=== PATIENT | female | born 1990 | race Caucasian/White ===

== ENCOUNTER 2024-04-12 08:54 | Outpatient (CLI) | payer OTHER, SELFPAY ==
--- NOTE | ~2024-04-12 | XR_ITS ---
EXAMINATION: XR foot RT min 3V, XR ankle RT min 3V DATE: 04/12/2024 09:10 INDICATION: Right foot and ankle pain TECHNIQUE: 1. Anteroposterior, mortise, additional oblique and lateral view of the right ankle were obtained. 2. Dorsoplantar, two oblique and lateral views of the right foot were obtained. COMPARISON: None. FINDINGS: Alignment of the right foot and ankle is normal. No fracture. Minimal to mild polyarticular osteoarth ritis at the first metatarsophalangeal and a few tarsometatarsal and interphalangeal joints. No ankle joint effusion. The soft tissues are unremarkable. IMPRESSION: 1. Minimal to mild polyarticular osteoarthritis in the right mid and forefoot. Reviewed, dictated and finalized at location A. ER HELPER IMPRESSION: 1. Minimal to mild polyarticular osteoarthritis in the right mid and forefoot.
== END 2024-04-12 08:55 | disposition home or self-care (01) ==
LOC: ANHBWCIMG 08:55
PROVIDERS: PCP Nurse Practitioner Adult Health; Visit Provider Nurse Practitioner Adult Health
DX: M19.071 Primary osteoarthritis, right ankle and foot (principal)
CPT/HCPCS: 73610; 73630

== ENCOUNTER 2024-06-20 09:50 | Outpatient (CLI) | payer OTHER, SELFPAY ==
--- OUTSIDE RECORDS SUMMARY | 2024-06-20 10:42 | XMS_ITS | Clinical Summary ---
Author Organization [facility] Address [address] [place] [address] Care Team Providers Care Barber Shop Operator Name Role Phone No, Physician Primary Care Provider [phone] Allergies No known active allergies Medications No known medications Active Problems Problem Noted Date Diagnosed Date Retained orthopedic hardware 12/01/2021 Overview (12/01/2021): Added automatically from request for surgery [id number] Ankle effusion, right 07/14/2021 Closed fracture of distal end of right radius Acute pain due to trauma 07/13/2021 Lumbar hernia 07/12/2021 Overview (07/12/2021): Added automatically from request for surgery [id number] Surgical History Surgery Date Site/Laterality Comments SURGERY OF LIP 03/22/2006 - 03/21/2007 age 16 WRIST SURGERY 06/20/2021 - 07/19/2021 Right Family History Medical History Relation Name Comments Anesthesia problems Neg Hx Social History Tobacco Use Types Packs/Day Years Used Date Smoking Tobacco: Former Cigarettes Q uit: 03/22/2009 Smokeless Tobacco: Never AUDIT-C Answer Date Recorded Q1: How often do you have a drink containing alcohol? Monthly or less 01/27/2022 Q2: How many drinks containi ng alcohol do you have on a typical day when you are drinking? Patient does not drink Q3: How often do you have si x or more drinks on one occasion? Never 01/27/2022 Comments No Sex and Gender Information Value Date Recorded Sex Assigned at Not on file Legal Sex Female 5:51 PM DIRECTOR EDUCATIONAL RADIO Gender Identity Not on file Sexual Orientation Not on file Obstetrics History Last Filed Vital Signs Vital Sign Reading Time Taken Comments Blood Pressure 101/54 01/27/2022 9:40 AM DIRECTOR EDUCATIONAL RADIO Pulse 67 01/27/2022 9:40 AM DIRECTOR EDUCATIONAL RADIO Temperature 36 C (96.8 F) 01/27/2022 8:38 AM DIRECTOR EDUCATIONAL RADIO Respiratory Rate 18 01/27/2022 9:40 AM DIRECTOR EDUCATIONAL RADIO Oxygen Saturation 95% 01/27/2022 9:40 AM DIRECTOR EDUCATIONAL RADIO Inhaled Oxygen Concentration - - Weight 81.6 kg (180 lb) 02/05/2023 10:36 AM DIRECTOR EDUCATIONAL RADIO Height 157.5 cm (5' 2 ) 02/05/2023 10:36 AM DIRECTOR EDUCATIONAL RADIO Body Mass Index 32.92 02/05/2023 10:36 AM DIRECTOR EDUCATIONAL RADIO Plan of Treatment Health Maintenance Due Date Last Done Comments Cervical Cancer Screening 1991 Depression Screening 1991 Hepatitis C Screening 1991 DTaP/Tdap/Td Vaccine (1 - Tdap) 07/19/2002 Varicella Vaccines (1 of 2 - 13+ 2-dose series) 07/19/2004 Hepatitis B Screening 07/19/2009 Regular Well Visit/Exam 18-64 07/19/2009 Covid-19 Vaccine (3 - 2023-2 5 season) 2023 02/04/2021, 01/14/2021 Influenza Vaccine (#1) 2023 HPV Vaccines Aged Out No longer eligi ble based on patient's age to complete this topic Pneumococcal vaccine <65 Aged Out No longer eligible based on patient's age to complete this topic Medical Devices Explanted Type Area Armature Varnisher Device Identifier Shelf Expiration Date Model / Serial / Lot [employer] K Wire Fix [place] Smooth Sgl End Ss [id number] - [id number] Explanted:Qty: 1 on 07/16/2021 by Ollie Patricio MD at [facility] Right: Wrist [employer] [id number] S / / [employer] Aptus Trilock 40mmx1.6mm 5 Hole Distal Radius Left Curve Plate A-4750.57 - [id number] Implanted:Qty: 1 on 07/16/2021 by Ollie Patricio MD at [facility] Explanted:Qty: 1 on 01/27/2022 by David Miner MD at [facility] Right: Wrist [employer] A-4750.57 / / [employer] A-5700.15/1 Aptus 2.5mm 15mm Adaptive Hexadrive 7 Wrist Radius Cortical Screw - [id number] Implanted:Qty: 1 on 07/16/2021 by Ollie Patricio MD at [facility] Explanted:Qty: 1 on 01/27/2022 by David Miner MD at [facility] Right: Wrist [employer] A-5700.15/ 1 / / [employer] Aptus Trilock 42mmx1.6mm 6 Hole Distal Radius L Left Angle Plate A-4750.55 - [id number] Implanted:Qty: 1 on 07/16/2021 by Ollie Patricio MD at [facility] Explanted:Qty: 1 on 01/27/2022 by David Miner MD at [facility] Right: Wrist [employer] A-4750.55 / / [employer] A-5750.16 2.5mm 16mm Lock Cortical Screw Bone - [id number] Implanted:Qty: 2 on 07/16/2021 by Ollie Patricio MD at [facility] Explanted:Qty: 2 on 01/27/2022 by David Miner MD at [facility] Right: Wrist [employer] A-5750.16 / / [employer] A-5750.14 Aptus 2.5mm 14mm Lock Cortical Screw Bone - [id number] Implanted:Qty: 1 on 07/16/2021 by Ollie Patricio MD at [facility] Explanted:Qty: 1 on 01/27/2022 by David Miner MD at [facility] Right: Wrist [employer] A-5750.14 / / [employer] A-5750.20 2.5mm 20mm Lock Cortical Screw Bone - [id number] Implanted:Qty: 1 on 07/16/2021 by Ollie Patricio MD at [facility] Explanted:Qty: 1 on 01/27/2022 by David Miner MD at [facility] Right: Wrist [employer] A-5750.20 / / [employer] A-5700.14 Aptus 2.5mm 14mm Cortical Screw Bone - [id number] Implanted:Qty: 3 on 07/16/2021 by Ollie Patricio MD at [facility] Explanted:Qty: 3 on 01/27/2022 at [facility] Right: Wrist [employer] A-5700.14 / / [employer] A-5700.18 Aptus 2.5mm 18mm Cortical Screw Bone Titanium - [id number] Implanted:Qty: 1 on 07/16/2021 by Ollie Patricio MD at [facility] Explanted:Qty: 1 on 01/27/2022 by David Miner MD at [facility] Right: Wrist [employer] A-5700.18 / / [employer] A-5700.14 Aptus 2.5mm 14mm Cortical Screw Bone - [id number] Implanted:Qty: 1 on 07/16/2021 by Ollie Patricio MD at [facility] Explanted:Qty: 1 on 01/27/2022 by David Miner MD at [facility] Right: Wrist [employer] A-5700.14 / / Insurance [facility] Advance Directives For more information, please contact: [phone] * Full Code (Latest Code Status on File) Date Activated Date Inactivated Comments 07/12/2021 10:46 AM 07/18/2021 5:45 PM Care Teams Barber Shop Operator Relationship Specialty Start Date End Date No, Physician PCP - General 07/12/21
--- OUTSIDE RECORDS SUMMARY | 2024-06-20 10:42 | XMS_ITS | Referral Summary ---
Author Organization [facility] Address [address] [place] [address] Care Team Providers Care Candy Depositing Machine Operator Name Role Phone No, Physician Primary Care Provider [phone] Allergies No known active allergies Medications No known medications Active Problems Problem Noted Date Diagnosed Date Retained orthopedic hardware 12/01/2021 Overview (12/01/2021): Added automatically from request for surgery [id number] Ankle effusion, right 07/14/2021 Closed fracture of distal end of right radius Acute pain due to trauma 07/13/2021 Lumbar hernia 07/12/2021 Overview (07/12/2021): Added automatically from request for surgery [id number] Social History Tobacco Use Types Packs/Day Years [...] on file Legal Sex Female 5:51 PM WASHER OFF Gender Identity Not on file Sexual Orientation Not on file Last Filed Vital Signs Vital Sign Reading Time Taken Comments Blood Pressure 101/54 01/27/2022 9:40 AM WASHER OFF Pulse 67 01/27/2022 9:40 AM WASHER OFF Temperature 36 C (96.8 F) 01/27/2022 8:38 AM WASHER OFF Respiratory Rate 18 01/27/2022 9:40 AM WASHER OFF Oxygen Saturation 95% 01/27/2022 9:40 AM WASHER OFF Inhaled Oxygen Concentration - - Weight 81.6 kg (180 lb) 02/05/2023 10:36 AM WASHER OFF Height 157.5 cm (5' 2 ) 02/05/2023 10:36 AM WASHER OFF Body Mass Index 32.92 02/05/2023 10:36 AM WASHER OFF Plan of Treatment Not on file Medical Devices Explanted Type Area Prenatal Genetic Counselor Device Identifier Shelf Expiration Date Model / Serial / Lot [employer] K Wire Fix [place] Smooth Sgl End Ss [id number] - [id number] Explanted:Qty: 1 on 07/16/2021 by Ollie Patricio MD at [facility] Right: Wrist [employer] [id number] S / / [employer] Aptus Trilock 40mmx1.6mm 5 Hole Distal Radius Left Curve Plate A-4750.57 - [id number] Implanted:Qty: 1 on 07/16/2021 by Ollie Patricio MD at [facility] Explanted:Qty: 1 on 01/27/2022 by aDvid Miner MD at [facility] Right: Wrist [employer] A-4750.57 / / [employer] A-5700.15/1 Aptus 2.5mm 15mm Adaptive Hexadrive 7 Wrist Radius Cortical Screw - [id number] Implanted:Qty: 1 on 07/16/2021 by Ollie Patricio MD at [facility] Explanted:Qty: 1 on 01/27/2022 by David Miner MD at [facility] Right: Wrist [employer] A-5700.15/ 1 / / [employer] Aptus Trilock 42mmx1.6mm 6 Hole Distal Radius L Left Angle Plate A-4750.55 - [id number] Implanted:Qty: 1 on 07/16/2021 by Ollie Patricio MD at [facility] Explanted:Qty: 1 on 01/27/2022 by David Miner MD at [facility] Right: Wrist [employer] A-4750.55 / / [employer] A-5750.16 2.5mm 16mm Lock Cortical Screw Bone - [id number] Implanted:Qty: 2 on 07/16/2021 by Ollie Patricio MD at [facility] Explanted:Qty: 2 on 01/27/2022 by David Miner MD at [facility] Right: Wrist [employer] A-5750.16 / / [employer] A-5750.14 Aptus 2.5mm 14mm Lock Cortical Screw Bone - [id number] Implanted:Qty: 1 on 07/16/2021 by Ollie Patricio MD at [facility] Explanted:Qty: 1 on 01/27/2022 by David Miner MD at [facility] Right: Wrist [employer] A-5750.14 / / [employer] A-5750.20 2.5mm 20mm Lock Cortical Screw Bone - [id number] Implanted:Qty: 1 on 07/16/2021 by Ollie Patricio MD at [facility] Explanted:Qty: 1 on 01/27/2022 by David Miner MD at [facility] Right: Wrist [employer] A-5750.20 / / [employer] A-5700.14 Aptus 2.5mm 14mm Cortical Screw Bone - [id number] Implanted:Qty: 3 on 07/16/2021 by Ollie Patricio MD at [facility] Explanted:Qty: 3 on 01/27/2022 at [facility] Right: Wrist [employer] A-5700.14 / / [employer] A-5700.18 Aptus 2.5mm 18mm Cortical Screw Bone Titanium - [id number] Implanted:Qty: 1 on 07/16/2021 by Ollie Patricio MD at [facility] Explanted:Qty: 1 on 01/27/2022 by David Miner MD at [facility] Right: Wrist [employer] A-5700.18 / / [employer] A-5700.14 Aptus 2.5mm 14mm Cortical Screw Bone - [id number] Implanted:Qty: 1 on 07/16/2021 by Ollie Patricio MD at [facility] Explanted:Qty: 1 on 01/27/2022 by David Miner MD at [facility] Right: Wrist [employer] A-5700.14 / / [place] [address] [facility] Advance Directives For more information, please contact: [phone] * Full Code (Latest Code Status on File) Date Activated Date Inactivated Comments 07/12/2021 10:46 AM 07/18/2021 5:45 PM Care Teams Candy Depositing Machine Operator Relationship Specialty Start Date End Date No, Physician PCP - General 07/12/21
--- OUTSIDE RECORDS SUMMARY | 2024-06-20 10:42 | XMS_ITS | Clinical Summary ---
Author Organization [facility] Address [address] [place] [address] Care Team Providers Care Supervisor Landscape Name Role Phone Unavailable Primary Care Provider Unavailabl e Source Comments [facility] [employer],non-owned Affiliates and Associated Physician Practices is amultiple site organization consisting of ambulatory clinics and hospital sitesin [place], [place], [place] and [place]. This disclosure is being madepursuant to the Care Everywhere program and may not contain all information available regarding this patient. Last updated 17.[facility] [facility] Social History Tobacco Use Types Packs/Day Years Used Date Smoking Tobacco: Never Assessed Sex and Gender Information Value Date Recorded Sex Assigned at Not on file Gender Identity Not on file Sexual Orientation Not on file Plan of Treatment Health Maintenance Due Date Last Done Comments PAP SMEAR 1991 HIV SCREENING 07/19/2006 HEPATITIS C SCREENING 07/15/2009 DTAP/TDAP/TD VACCINES (1 - Tdap) 07/19/2010 HEPATITIS B VACCINE (1 of 3 - 19+ 3-dose series) 07/19/2010 COVID-19 VACCINE ( - 2023-2 5 season) 2023 INFLUENZA VACCINE (#1) 2023 DEPRESSION SCREENING 03/22/2024 ZOSTER VACCINE (1 of 2) 07/19/2041 HIB VACCINE Aged Out No longer eligi ble based on patient's age to complete this topic HPV VACCINE Aged Out No longer eligi ble based on patient's age to complete this topic MENINGOCOCCAL (Group B) VACC INE SHARED DECISION-MAKING Aged Out No longer eligibl e based on patient's age to complete this topic MENINGOCOCCAL GROUPS A/C/Y/W VACCINE Aged Out No longer eligible b ased on patient's age to complete this topic PNEUMOCOCCAL VACCINE Aged Out No long er eligible based on patient's age to complete this topic
--- OUTSIDE RECORDS SUMMARY | 2024-06-20 10:42 | XMS_ITS | Encounter Summary ---
Author Organization [facility] Address [address] [place] [address] Phone Care Team Providers Care Hand Method Lasting Machine Operator Name Role Phone No, Physician Primary Care Provider [phone] Encounter Details Date Type Department Care Team (Latest Contact Info) Description 08/25/2021 Orders Only [facility] HAND/WRIST Scanning, Provider Social History Tobacco Use Types Packs/Day Years Used Date Smoking Tobacco: Former Cigarettes Q uit: 2010 Smokeless Tobacco: Never AUDIT-C Answer Date Recorded Q1: How often do you have a drink containing alc ohol? Monthly or less 07/24/2021 Q2: How many drinks containi ng alcohol do you have on a typical day when you are drinking? 5 or 6 07/24/2021 Q3: How often do you have si x or more drinks on one occasion? Never 07/24/2021 Comments No Sex and Gender Information Value Date Recorded Sex Assigned at Not on file Legal Sex Female 5:51 PM SHEAR OPERATOR AUTOMATIC Gender Identity Not on file Sexual Orientation Not on file documented as of this encounter Plan of Treatment Not on file documented as of this encounter Procedures Procedure Name Priority Date/Time Associated Diagnosis Comments SCAN - RADIOLOGY/IMAGING 08/25/2021 documented in this encounter Results * SCAN - RADIOLOGY/IMAGING (08/25/2021) Anatomical Region Laterality Modality Other us Provider Scanning Final Result documented in this encounter Visit Diagnoses Not on filedocumented in this encounter Care Teams Hand Method Lasting Machine Operator Relationship Specialty Start Date End Date No, Physician PCP - General 07/12/21 documented as of this encounter
--- OUTSIDE RECORDS SUMMARY | 2024-06-20 10:42 | XMS_ITS | Clinical Summary ---
Author Organization [facility] Address [address] [place] [address] Care Team Providers Care Expeller Operator Name Role Phone None, Provider MD Primary Care Provider Unavaila ble Allergies No known active allergies Medications diphenhydramine- maalox-lidocaine viscous (MAGIC MOUTHWASH) oral suspension Swish & spi 15 mLs every 4 (four) hours as needed for Irritation. swish & spit 240 mL 03/14/2019 Active diclofenac EC 75 MG tabletIndication s:Abdominal wall seroma, initial encounter,Abdomi nal wall pain in both lower quadrants Take 1 tablet (75 mg total) by mouth 2 (two) times daily as needed (Pain. Please take with meals). 30 tablet 08/15/2021 Active HYDROcodone-acet aminophen 5-325 MG tabletIndication s:Acute Pain < 3 Day Supply Take 1 tablet by mouth every 6 (six) hours as needed for Pain. Indications : Acute Pain < 3 Day Supply 7 tablet 08/15/2021 Active Active Problems No known active problems Family History Medical History Relation Comments Diabetes Father Heart Disease Father Kidney Disease Father Stroke Father Relation Status Comments Father Social History Tobacco Use Types Packs/Day Years Used Date Smoking Tobacco: Former Cigarettes Q uit: 2011 Smokeless Tobacco: Never Alcohol Use Standard Drinks/Week Comments Yes 0 (1 standard drink = 0.6 oz pur e alcohol) AUDIT-C Answer Date Recorded Frequency of Alcohol Consumption 2-4 times a wed05/26/2018 Average Number of Drinks 3 or 4 019 Frequency of Binge Drinking Not on file 09/2018 Comments No Sex and Gender Information Value Date Recorded Sex Assigned at Not on file Legal Sex Female 11:19 AM WEB PROJECT MANAGER Gender Identity Female 02/01/2018 1:10 PM WEB PROJECT MANAGER Sexual Orientation Straight 02/01/2018 1: 10 PM WEB PROJECT MANAGER Last Filed Vital Signs Vital Sign Reading Time Taken Comments Blood Pressure 109/67 08/15/2021 10:55 PM CDT Pulse 70 08/15/2021 10:55 PM CDT Temperature 36.7 C (98 F) 08/15/2021 4:22 PM CDT Respiratory Rate 16 08/15/2021 10:55 PM CDT Oxygen Saturation 96% 08/15/2021 10:55 PM CDT Inhaled Oxygen Concentration - - Weight 81.6 kg (180 lb) 08/15/2021 4:22 PM CDT Height 157.5 cm (5' 2 ) 08/15/2021 4:22 PM CDT Body Mass Index 32.92 08/15/2021 4:22 PM CDT Plan of Treatment Health Maintenance Due Date Last Done Comments Cervical Cancer Screening Pa p Smear (Age 30 to 64) Every 3 Years 1991 Hepatitis C 07/19/2009 DTaP, Tdap and Td Vaccines ( 1 - Tdap) 07/19/2010 Hepatitis B Vaccines (1 of 3 - 19+ 3-dose series) 07/19/2010 Annual Physical 02/01/2019 02/01/2018 Cervical Cancer Screening Pa p with HPV Testing (Age 30 to 64) Every 5 Years 07/19/2021 Cervical Cancer Screening wi th HPV 07/19/2021 COVID-19 Vaccine (3 - 2023-2 5 season) 2023 02/04/2021, 01/14/2021 Influenza Adult (#1) 2023 HPV Vaccines Aged Out No longer eligi ble based on patient's age to complete this topic Meningococcal B Vaccine Aged Out No l onger eligible based on patient's age to complete this topic Meningococcal Vaccine Aged Out No mimi juarez eligible based on patient's age to complete this topic Pneumococcal Vaccine: Pediatrics (0 to 5 Years) and At-Risk Patients (6 to 64 Years) Aged Out No longer eligible b ased on patient's age to complete this topic RSV Immunizations Under 20 Months Aged Out No longer eligible b ased on patient's age to complete this topic Additional Health Concerns Infection Onset Date Last Indicated 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
--- OUTSIDE RECORDS SUMMARY | 2024-06-20 10:42 | XMS_ITS | Clinical Summary ---
Author Organization [facility] Address [address] [place] [address] Phone Care Team Providers Care Clinical Team Manager Name Role Phone Chelsea Min MD Primary Care Provider [phone] Allergies No known active allergies Medications COLLAGEN MISC by Misc.(Non-D rug; Combo Route) route. Active TURMERIC ORAL Take by mouth. Active calcium phosphate trib/vit D3 (FLINTSTONES BONE SUPPORT ORAL) Take by mouth. Active Active Problems No known active problems Encounters Date Type Department Care Team Description 05/27/2024 External Device Data [facility]CTION Provider, Abstract 05/26/2024 External Device Data [facility] Provider, Abstract 05/24/2024 External Device Data [facility] Provider, Abstract 05/09/2024 External Device Data [facility] Provider, Abstract 04/18/2024 External Device Data [facility] Provider, Abstract 04/12/2024 External Device Data [facility]CTION Provider, Abstract 04/12/2024 External Device Data [facility]STRACTION Provider, Abstract from Last 3 Months Immunizations Immunization Administration Dates Next Due (ADACEL/BOOSTRIX)(10 YR UP) TDAP VACCINE, 0.5ML, IM 09/08/2023 Family History Medical History Relation Name Comments No Known Problems Brother Diabetes Father Heart Disease Father Kidney Disease Father Stroke Father Unknown Maternal Grandfather Unknown Maternal Grandmother Anxiety Mother Unknown Paternal Grandfather Diabetes Paternal Grandmother No Known Problems Sister No Known Problems Son Relation Name Status Comments Brother Alive Father Alive Maternal Grandfather Maternal Grandmother Mother Alive Paternal Grandfather Paternal Grandmother Sister Alive Son Alive Social History Tobacco Use Types Packs/Day Years Used Date Smoking Tobacco: Former Smokeless Tobacco: Never Tobacco Cessation:Counseling Given: Not Answered Alcohol Use Standard Drinks/Week Comments Not Currently 0 (1 standard drink = 0.6 oz pur e alcohol) 2 years sober Comments No Sex and Gender Information Value Date Recorded Sex Assigned at Not on file Legal Sex Female 3:54 PM CDT Gender Identity Not on file Sexual Orientation Not on file Last Filed Vital Signs Vital Sign Reading Time Taken Comments Blood Pressure 118/74 10/20/2023 9:21 AM CDT Pulse 77 09/08/2023 2:22 PM CDT Temperature 36.1 C (97 F) 09/08/2023 2:22 PM CDT Respiratory Rate 16 11/26/2020 8:54 AM CDT Oxygen Saturation 98% 09/08/2023 2:22 PM CDT Inhaled Oxygen Concentration - - Weight 84.4 kg (186 lb) 10/20/2023 9:21 AM CDT Height 157.5 cm (5' 2 ) 10/20/2023 9:21 AM CDT Body Mass Index 34.02 10/20/2023 9:21 AM CDT Plan of Treatment Health Maintenance Due Date Last Done Comments HEPATITIS B VACCINES (1 of 3 - 19+ 3-dose series) 07/19/2010 PAP SMEAR 07/19/2012 CERVICAL CANCER SCREENING 07/19/2021 HPV/Cotest (30-65) 07/19/2021 PAP SMEAR 07/19/2021 INFLUENZA VACCINE (#1) 2023 Preventative Visit- Commercial 03/22/2024 09/08/2023, 02/01/2018 DTAP/TDAP/TD VACCINES (2 - T d or Tdap) 09/07/2033 09/08/2023 HPV VACCINES Aged Out No longer eligi ble based on patient's age to complete this topic PNEUMOCOCCAL VACCINE 0-49 YEARS Aged Out No longer eligible b ased on patient's age to complete this topic Insurance [employer] Care Teams Clinical Team Manager Relationship Specialty Start Date End Date Chelsea Min MD [address] [place] [id number] PCP - General Family Practice 09/08/23
--- NOTE | 2024-06-20 11:30 | NEURO_ITS ---
Impression: # Complains of paresthesia of skin. ? # Normal motor and sensory Nerve Conduction Study. ? # Normal needle/EMG exam. ? # Clinical correlation recommended. Higher involvement needs to be ruled out. Nerve Conduction Studies Anti Sensory Summary Table ?Stim Site NR Peak (ms) P-T Amp (?V) Site1 Site2 Delta-P (ms) Dist (cm) Frankie (m/s) Left Sup Fibular Anti Sensory (Ant Lat Mall) 14 cm ? 2.7 15.4 14 cm Ant Lat Mall 2.7 16.0 59 Right Sup Fibular Anti Sensory (Ant Lat Mall) 14 cm ? 3.1 17.3 14 cm Ant Lat Mall 3.1 16.0 52 Left Sural Anti Sensory (Lat Mall) Calf ? 3.1 15.4 Calf Lat Mall 3.1 16.0 52 Right Sural Anti Sensory (Lat Mall) Calf ? 3.5 13.4 Calf Lat Mall 3.5 16.0 46 Motor Summary Table ?Stim Site NR Onset (ms) O-P Amp (mV) Site1 Site2 Delta-0 (ms) Dist (cm) Frankie (m/s) Left Peroneal Motor (Vastus Med) Ankle ? 3.2 3.1 Popit Ankle 7.3 40.0 55 Popit ? 10.5 3.3 Right Peroneal Motor (Vastus Med) Ankle ? 3.5 5.1 Popit Ankle 6.8 39.0 57 Popit ? 10.3 4.8 Left Tibial Motor (Abd Hamilton Brev) Ankle ? 3.4 6.8 Knee Ankle 7.4 40.0 54 Knee ? 10.8 7.3 Right Tibial Motor (Abd Hamilton Brev) Ankle ? 3.8 4.6 Knee Ankle 6.4 37.0 58 Knee ? 10.2 8.3 F Wave Studies ?NR F-Lat (ms) L-R F-Lat (ms) Left Peroneal (Mrkrs) (EDB) ? 45.46 0.35 Right Peroneal (Mrkrs) (EDB) ? 45.12 0.35 Left Tibial (Mrkrs) (Abd Hallucis) ? 44.62 0.80 Right Tibial (Mrkrs) (Abd Hallucis) ? 43.82 0.80 EMG ?Side Muscle Nerve Root Ins Act Fibs Amp Dur Recrt Comment Right AntTibialis Dp Br Fibular L4-5 Nml Nml Nml Nml Nml Right Gastroc Tibial S1-2 Nml Nml Nml Nml Nml Right Fibularis Long Sup Br Fibular L5-S1 Nml Nml Nml Nml Nml Right Flex Dig Long Tibial L5-S2 Nml Nml Nml Nml Nml Right Ext Dig Brev Dp Br Fibular L5, S1 Nml Nml Nml Nml Nml Right QuadratusFem QuadFemoris L4-5, S1 Nml Nml Nml Nml Nml Left AntTibialis Dp Br Fibular L4-5 Nml Nml Nml Nml Nml Left Gastroc Tibial S1-2 Nml Nml Nml Nml Nml Left Fibularis Long Sup Br Fibular L5-S1 Nml Nml Nml Nml Nml Left Flex Dig Long Tibial L5-S2 Nml Nml Nml Nml Nml Left Ext Dig Brev Dp Br Fibular L5, S1 Nml Nml Nml Nml Nml Left QuadratusFem QuadFemoris L4-5, S1 Nml Nml Nml Nml Nml MTDD
== END 2024-06-20 09:51 | disposition home or self-care (01) ==
PROVIDERS: PCP Nurse Practitioner Adult Health; Visit Provider Orthopaedic Surgery
DX: R20.0 Anesthesia of skin (principal); R20.2 Paresthesia of skin
CPT/HCPCS: 95886; 95910

== ENCOUNTER 2024-09-25 12:12 | Outpatient (CLI) | payer OTHER, SELFPAY ==
--- NOTE | ~2024-09-25 | MR_ITS ---
MRI of the right ankle Clinical history: Pain Technique: Coronal proton-density and proton-density fat-sat images, axial proton-density and proton- density fat-sat images, and sagittal proton-density and proton-density fat-sat images were acquired. Findings: Syndesmotic ligaments are intact. Anterior and posterior talofibular ligaments, and calcane ofibular ligament are intact. Deltoid ligament intact. Medial flexor tendons, peroneal tendons, anterior extensor tendons, and Achilles tendon are intact. P robable peroneus quartus tendon noted. There is no osteochondral lesion of the talar dome. Small tibiotalar and subtalar joint effusions are present. Joint spaces are intact. No suspicious bone marrow signal abnormality seen. Plantar fascia intact. No soft tissue mass or fluid collection evident. Impression: Small tibiotalar and subtalar joint effusions, nonspecific. Probable peroneus quartus present (accessory muscle). Reviewed, dictated and finalized at location . Impression: Small tibiotalar and subtalar joint effusions, nonspecific. Probable peroneus quartus present (accessory muscle).
== END 2024-09-25 12:13 | disposition home or self-care (01) ==
LOC: GOSHIMG 12:12
PROVIDERS: PCP Nurse Practitioner Adult Health; Visit Provider Nurse Practitioner Adult Health
DX: M25.471 Effusion, right ankle (principal); M25.551 Pain in right hip
CPT/HCPCS: 73721